=== PATIENT | male | born 1940 | race Caucasian/White ===

== ENCOUNTER 2018-12-26 21:42 | Inpatient (IN) | payer MEDICARE ==
[~2018-12-26] VITALS: Ht 177.8 cm; Wt 71.1 kg
[2018-12-26 22:24] LABS: BASOPHILS ABSOLUTE AUTO 0.04 K/mm3 (0.00-0.23); BASOPHILS PERCENT AUTO 0 % (0-2); EOSINOPHILS ABSOLUTE AUTO 0.02 K/mm3 (0.00-0.68); EOSINOPHILS PERCENT AUTO 0 % (0-6); Hematocrit 44.5 % (37.0-53.0); Hemoglobin 14.5 g/dL (13.5-17.5); IMMATURE GRAN ABSOLUTE AUTO 0.06 K/mm3 (0.00-0.10); IMMATURE GRAN PERCENT AUTO 0 % (0-1); LYMPHOCYTES ABSOLUTE AUTO 0.55 K/mm3 (0.84-5.20); LYMPHOCYTES PERCENT AUTO 4 % (21-46); MONOCYTES ABSOLUTE AUTO 0.66 K/mm3 (0.16-1.47); MONOCYTES PERCENT AUTO 4 % (4-13); Mean Corpuscular HGB 32.3 pg (26.0-34.0); Mean Corpuscular HGB Conc 32.6 g/dL (31.5-36.5); Mean Corpuscular Volume 99 fL (80-100); NEUTROPHILS ABSOLUTE AUTO 13.81 K/mm3 (1.96-9.15); NEUTROPHILS PERCENT AUTO 91 % (41-73); Platelet Count 272 K/mm3 (150-400); RDW Coefficient Variation 12.5 % (11.7-14.2); RDW Standard Deviation 45.5 fL (35.1-46.3); Red Blood Cell Count 4.49 M/mm3 (4.30-5.90); White Blood Cell Count 15.14 K/mm3 (4.00-11.30)
[2018-12-26] MEDS ORDERED: ASPI81CH PO (22:40)
[2018-12-26] MEDS ORDERED: CALCITRATE200 MG PO (22:40)
[2018-12-26] MEDS ORDERED: ELIQUIS5 MG PO (22:40)
[2018-12-26 22:41] LABS: Albumin, Blood 3.2 g/dL (3.4-5.0); Albumin/Globulin Ratio 0.9 (0.8-1.8); Bun/Creatinine Ratio 18.9 (12.0-20.0); Calcium, Blood 8.6 mg/dL (8.5-10.1); Creatinine, Blood 1.59 mg/dL (0.60-1.20); Globulin, Blood 3.5 g/dL (2.2-4.0); Potassium, Blood 4.8 mmol/L (3.5-5.5); Total Protein, Blood 6.7 g/dL (6.4-8.2)
[2018-12-26] MEDS ORDERED: PRED5 PO (22:41)
[2018-12-26] MEDS ORDERED: CAND16 PO (22:41)
[2018-12-26] MEDS ORDERED: FURO40 PO (22:41)
[2018-12-26] MEDS ORDERED: METO25ER PO (22:41)
[2018-12-26] MEDS ORDERED: FURO20 PO (22:41)
[2018-12-26 22:42] LABS: Source, Urine Clean Catch
[2018-12-26] MEDS ORDERED: RISE35 PO (22:42)
[2018-12-26] MEDS ORDERED: Zantac150 MG PO (22:42)
[2018-12-26] MEDS ORDERED: PANT40 PO (22:42)
[2018-12-26] MEDS ORDERED: SIMV40 PO (22:43)
[2018-12-26] MEDS ORDERED: SPIR25 PO (22:43)
[2018-12-26] MEDS ORDERED: TIOT18 INH (22:43)
[2018-12-26 22:44] LABS: Blood, Urine 1+ (Neg); Glucose Qualitative, Urine Neg (Neg); Ketones, Urine 1+ (Neg); Leukocyte Esterase, Urine 1+ (Neg); Nitrite, Urine Neg (Neg); Protein, Urine 2+ (Neg); Urobilinogen, Urine 1+ (Normal)
[2018-12-26] MEDS ORDERED: LANS30EC PO (22:44)
[2018-12-26] MEDS ORDERED: NITR.4SL SL (22:44)
[2018-12-26 22:47] LABS: Influenza A Negative (NEGATIVE); Influenza B Negative (NEGATIVE)
[2018-12-26 22:56] LABS: Appearance, Urine Hazy (Clear); Bilirubin, Urine 1+ (Neg); Color, Urine Yellow (P-Yellow)
[2018-12-26 22:57] LABS: Amorphous Light (0-Heavy); Bacteria Few /hpf; Mucus Light (0-Heavy); Red Blood Cells, Urine 0-2 /hpf (0-2); Squamous Epithelial Cells Not Seen /hpf (Few)
[2018-12-26 23:18] LABS: Troponin I 0.298 ng/mL (0.000-0.040)
[2018-12-27 01:27] LABS: Troponin I 0.209 ng/mL (0.000-0.040)
[2018-12-27 04:58] LABS: Adenovirus Not Detected (NOT DETECT); Bordetella pertussis Not Detected (NOT DETECT); Chlamydophila pneumoniae Not Detected (NOT DETECT); Coronavirus 229E Not Detected (NOT DETECT); Coronavirus HKU1 Not Detected (NOT DETECT); Coronavirus NL63 Not Detected (NOT DETECT); Coronavirus OC43 Not Detected (NOT DETECT); Human Metapneumovirus Not Detected (NOT DETECT); Human Rhinovirus/Enterovirus Detected (NOT DETECT); Influenza A Not Detected (NOT DETECT); Influenza A/2009-H1 Not Detected (NOT DETECT); Influenza A/H1 Not Detected (NOT DETECT); Influenza A/H3 Not Detected (NOT DETECT); Influenza B Not Detected (NOT DETECT); Mycoplasma pneumoniae Not Detected (NOT DETECT); Parainfluenza Virus 1 Not Detected (NOT DETECT); Parainfluenza Virus 2 Not Detected (NOT DETECT); Parainfluenza Virus 3 Not Detected (NOT DETECT); Parainfluenza Virus 4 Not Detected (NOT DETECT); Respiratory Syncytial Virus Not Detected (NOT DETECT)
--- NOTE | 2018-12-27 07:10 | NUR ---
SHIFT SUMMARY PATIENT ADMITED EARLIER THIS SHIFT FROM THE ER. PATIENT TRANSFERED FROM THE RNEY TO THE BED VIA SLIDER SHEET. PATIENT VERY SLEEPY UPON ADMIT. PATIENT WOULD EASILY AWAKEN TO VERBAL STIMULI BUT WOULD FALL ASLEEP WHILE RESPONDING TO QUESTIONS. PATIENT APPEARED TO SLEEP WELL THROUGHOUT THE REST OF THE NIGHT. PATIENT MUCH MORE ALERT THIS MORNING AND WAS ABLE TO STAND AT THE BEDSIDE TO USE THE URINAL WITH ONE ASSIST. PATIENT APPEARED ALERT AND ORIENTED THIS MORNING. FLUIDS AND ABX RUNNING PER ORDERS. REPORT GIVEN TO ONCOMING RN.
--- NOTE | 2018-12-27 08:21 | NUR ---
Echocardiogram completed.
[2018-12-27 08:53] LABS: Hematocrit 47.1 % (37.0-53.0); Mean Corpuscular HGB 32.2 pg (26.0-34.0); Mean Corpuscular HGB Conc 31.8 g/dL (31.5-36.5); Mean Corpuscular Volume 101 fL (80-100); Mean Platelet Volume 10.3 fL (9.1-12.4); Platelet Count 212 K/mm3 (150-400); RDW Coefficient Variation 12.5 % (11.7-14.2); Red Blood Cell Count 4.66 M/mm3 (4.30-5.90); White Blood Cell Count 13.95 K/mm3 (4.00-11.30)
[2018-12-27 09:12] LABS: Albumin, Blood 2.9 g/dL (3.4-5.0); Albumin/Globulin Ratio 0.8 (0.8-1.8); Bilirubin, Total 0.9 mg/dL (0.1-1.0); Bun/Creatinine Ratio 20.7 (12.0-20.0); Calcium, Blood 8.3 mg/dL (8.5-10.1); Creatinine, Blood 1.4 mg/dL (0.60-1.20); Globulin, Blood 3.8 g/dL (2.2-4.0); Total Protein, Blood 6.7 g/dL (6.4-8.2)
[2018-12-27 09:16] LABS: Troponin I 0.094 ng/mL (0.000-0.040)
--- NOTE | 2018-12-27 10:09 | NUR ---
NURSING PCU DAYSHIFT: Assumed care of pt at approx 0700. A/O, very pleasant, cooperative w/care. Skin is fragile w/scattered bruising noted to UE's, no breakdown noted. C/O 8/10 general pain including ACW discomfort which increases w/coughing and deep inspiration. Ambulates independently and w/o difficulty, mild general weakness noted, c/o numbness in b/l hands. Tele in place, afib w/BBB, no c/o cardiac related CP/pressure, HR 90's, trace BLE edema. L/S w/wheezes and crackles t/o, dyspnea w/minimal exertion, O2 sat upper 90's on RA, frequent cough producing large amts of thick reed/bloody sputum. Abd SNT, BT+, intermittent nausea, voiding w/o difficulty. PIV x1, s/l w/abx as ordered. No s/s of acute distress at this time. Tylenol administered for general discomfort, sputum specimen sent to lab, jello and juice provided for breakfast per pt request. Seen by PMD, new d/o received. Pt denies any current needs or questions regarding plan of care. Call light in reach and pt is able to use w/o difficulty. Cont to monitor for changes.
--- NOTE | 2018-12-27 18:46 | NUR ---
NURSING PCU DAYSHIFT SUMMARY: No significant changes noted t/o the shift. Pt became hypotensive w/SBP 80's and MAP <65, repositioned supine, improved t/o the afternoon. ECHO completed, results reviewed and discussed w/PMD, new d/o received, cardiology consult called to answering service. Spoke w/pt's daughter out of state, update provided, questions answered. Pt currently resting in bed comfortably. Denies any current needs or questions regarding plan of care, call light in reach, cont to monitor until rpt is given to NOC RN.
[2018-12-28 04:20] LABS: BASOPHILS ABSOLUTE AUTO 0.03 K/mm3 (0.00-0.23); BASOPHILS PERCENT AUTO 0 % (0-2); EOSINOPHILS ABSOLUTE AUTO 0.06 K/mm3 (0.00-0.68); EOSINOPHILS PERCENT AUTO 1 % (0-6); Hematocrit 39.9 % (37.0-53.0); Hemoglobin 12.8 g/dL (13.5-17.5); IMMATURE GRAN ABSOLUTE AUTO 0.07 K/mm3 (0.00-0.10); IMMATURE GRAN PERCENT AUTO 1 % (0-1); LYMPHOCYTES ABSOLUTE AUTO 0.81 K/mm3 (0.84-5.20); LYMPHOCYTES PERCENT AUTO 7 % (21-46); MONOCYTES ABSOLUTE AUTO 0.56 K/mm3 (0.16-1.47); MONOCYTES PERCENT AUTO 5 % (4-13); Mean Corpuscular HGB 32.2 pg (26.0-34.0); Mean Corpuscular HGB Conc 32.1 g/dL (31.5-36.5); Mean Corpuscular Volume 100 fL (80-100); Mean Platelet Volume 10.2 fL (9.1-12.4); NEUTROPHILS ABSOLUTE AUTO 9.96 K/mm3 (1.96-9.15); NEUTROPHILS PERCENT AUTO 87 % (41-73); Platelet Count 236 K/mm3 (150-400); RDW Coefficient Variation 12.6 % (11.7-14.2); RDW Standard Deviation 46.7 fL (35.1-46.3); Red Blood Cell Count 3.98 M/mm3 (4.30-5.90); White Blood Cell Count 11.49 K/mm3 (4.00-11.30)
[2018-12-28 04:38] LABS: Bun/Creatinine Ratio 19.7 (12.0-20.0); Creatinine, Blood 1.37 mg/dL (0.60-1.20); Potassium, Blood 4.9 mmol/L (3.5-5.5)
--- NOTE | 2018-12-28 07:37 | NUR ---
SHIFT SUMMARY PATIENT PLEASENT AND COOPERATIVE THROUGHOUT THE NIGHT. PATIENT APPEARED TO NAP ON AND OFF THROUGHOUT THE NIGHT. PATIENT HAS A HARSH COUGH THAT IS PRODUCING LOTS OF SPUTUM. PATIENT REPORTS SPUTUM IS MORE CLEAR THIS MORNING THAN IT WAS LAST NIGHT. COUGH MEDICATION OBTANED AND PROVIDED TO PATIENT FOR COUGH RELEIF. VITAL SIGNS CHARTED. REPORT GIVEN TO ONCOMING RN.
--- NOTE | 2018-12-28 17:23 | NUR ---
NO ACUTE CHANGES NOTED THIS SHIFT, NO C/O OF PAIN OR OTHER DISCOMFORT. CXR TO BE DONE IN THE AM. WILL CONTINUE TO MONITOR AND REPORT TO ONCOMING RN.
[2018-12-29 03:53] LABS: BASOPHILS ABSOLUTE AUTO 0.02 K/mm3 (0.00-0.23); BASOPHILS PERCENT AUTO 0 % (0-2); EOSINOPHILS ABSOLUTE AUTO 0.16 K/mm3 (0.00-0.68); EOSINOPHILS PERCENT AUTO 2 % (0-6); Hematocrit 39.1 % (37.0-53.0); Hemoglobin 12.7 g/dL (13.5-17.5); IMMATURE GRAN ABSOLUTE AUTO 0.05 K/mm3 (0.00-0.10); IMMATURE GRAN PERCENT AUTO 1 % (0-1); LYMPHOCYTES ABSOLUTE AUTO 0.86 K/mm3 (0.84-5.20); LYMPHOCYTES PERCENT AUTO 9 % (21-46); MONOCYTES ABSOLUTE AUTO 0.47 K/mm3 (0.16-1.47); MONOCYTES PERCENT AUTO 5 % (4-13); Mean Corpuscular HGB 31.9 pg (26.0-34.0); Mean Corpuscular HGB Conc 32.5 g/dL (31.5-36.5); Mean Corpuscular Volume 98 fL (80-100); Mean Platelet Volume 9.9 fL (9.1-12.4); NEUTROPHILS ABSOLUTE AUTO 7.74 K/mm3 (1.96-9.15); NEUTROPHILS PERCENT AUTO 83 % (41-73); Platelet Count 289 K/mm3 (150-400); RDW Coefficient Variation 12.2 % (11.7-14.2); RDW Standard Deviation 44.3 fL (35.1-46.3); Red Blood Cell Count 3.98 M/mm3 (4.30-5.90)
[2018-12-29 04:23] LABS: Albumin, Blood 2.7 g/dL (3.4-5.0); Albumin/Globulin Ratio 0.8 (0.8-1.8); Bilirubin, Total 0.9 mg/dL (0.1-1.0); Bun/Creatinine Ratio 22.2 (12.0-20.0); Calcium, Blood 7.9 mg/dL (8.5-10.1); Creatinine, Blood 1.44 mg/dL (0.60-1.20); Globulin, Blood 3.3 g/dL (2.2-4.0); Potassium, Blood 3.9 mmol/L (3.5-5.5)
--- NOTE | 2018-12-29 05:59 | NUR ---
SHIFT SUMMARY PATIENT ALERT AND ORIENTED X3 T/O SHIFT. HE SLEPT ALL NIGHT, WAKING EASILY FOR VITALS AND ASSESSMENTS. PT DENIED ANY UNMET NEEDS, HIS VITALS WERE STABLE AND NO ACUTE CHANGES WERE OBSERVED TO LOC OR MENTATION. PT COMMUNICATED EFFECTIVELY WITH STAFF DURING THE NIGHT. HE WAS UP WITH SBA, THOUGH USED URINAL AT BEDSIDE WITHOUT ISSUE. PT WILL CONTINUE TO BE MONITORED UNTIL HANDOFF TO DAYSHIFT RN.
--- NOTE | 2018-12-29 08:30 | NUR ---
Assumed Care: Assumed care of pt at approx 0700. VSS. In no apparent sign of distress. Pt is A&Ox4. Calls appropriately and repositions self. Denies any pain at this time except for a mild sore throat and some feeling of chest congestion. See shift assessment for detailed assessment. Currently resting in bed with call light within reach. Denies any further questions, complaints or requests at this time. Possible status change to medical floor today. Will continue to monitor.
--- NOTE | 2018-12-29 18:45 | NUR ---
Shift Summary No acute changes since initial shift assessment. VSS. In no apparent sign of distress. Pt is A&Ox4. Calls appropriately. Repositions self. Denies any pain t/o the day. Discussed with Dr. Morton possibly status changing pt today, but no further orders received. Pt has overall had a very uneventful day. Denies any acute complaints or events t/o the shift. Currently resting in bed with call light within reach. Denies any further questions, complaints or requests at this time. Will continue to montior until report is given to conor DALE.
[2018-12-30 04:43] LABS: BASOPHILS ABSOLUTE AUTO 0.03 K/mm3 (0.00-0.23); BASOPHILS PERCENT AUTO 0 % (0-2); EOSINOPHILS ABSOLUTE AUTO 0.27 K/mm3 (0.00-0.68); EOSINOPHILS PERCENT AUTO 3 % (0-6); Hematocrit 41.4 % (37.0-53.0); Hemoglobin 13.6 g/dL (13.5-17.5); IMMATURE GRAN ABSOLUTE AUTO 0.06 K/mm3 (0.00-0.10); IMMATURE GRAN PERCENT AUTO 1 % (0-1); LYMPHOCYTES ABSOLUTE AUTO 1.08 K/mm3 (0.84-5.20); LYMPHOCYTES PERCENT AUTO 11 % (21-46); MONOCYTES ABSOLUTE AUTO 0.63 K/mm3 (0.16-1.47); MONOCYTES PERCENT AUTO 7 % (4-13); Mean Corpuscular HGB 31.9 pg (26.0-34.0); Mean Corpuscular HGB Conc 32.9 g/dL (31.5-36.5); Mean Corpuscular Volume 97 fL (80-100); Mean Platelet Volume 9.8 fL (9.1-12.4); NEUTROPHILS ABSOLUTE AUTO 7.41 K/mm3 (1.96-9.15); NEUTROPHILS PERCENT AUTO 78 % (41-73); Platelet Count 335 K/mm3 (150-400); RDW Coefficient Variation 12.1 % (11.7-14.2); RDW Standard Deviation 43.7 fL (35.1-46.3); Red Blood Cell Count 4.26 M/mm3 (4.30-5.90); White Blood Cell Count 9.48 K/mm3 (4.00-11.30)
[2018-12-30 04:55] LABS: Albumin, Blood 2.8 g/dL (3.4-5.0); Anion Gap 8 mmol/L (6-16); Blood Urea Nitrogen 38 mg/dL (8-24); Bun/Creatinine Ratio 26.2 (12.0-20.0); CO2, Blood 29 mmol/L (21-32); Calcium, Blood 8.5 mg/dL (8.5-10.1); Chloride, Blood 103 mmol/L (98-108); Creatinine, Blood 1.45 mg/dL (0.60-1.20); Glomerular Filtration Rate 50 (60-); Glucose, Blood 84 mg/dL (70-99); Phosphorus, Blood 4.3 mg/dL (2.5-4.9); Potassium, Blood 3.9 mmol/L (3.5-5.5); Sodium, Blood 140 mmol/L (136-145)
--- NOTE | 2018-12-30 06:40 | NUR ---
SHIFT SUMMARY NO ACUTE CHANGES TO PATIENT'S LOC OR MENTATION T/O SHIFT. HE SLEPT WELL T/O THE NIGHT WAKING EASILY FOR VITALS AND ASSESSMENTS. PT DENIED ANY UNMET NEEDS. HE WAS ABLE TO COMMUNICATE WITH STAFF EFFECTIVELY. PT WAS PLEASANT AND COOPERATIVE DURING THE NIGHT AND REMAINED ALERT AND ORIENTED X 3. HE WILL CONTINUE TO BE MONITORED UNTIL HANDOFF TO DAYSHIFT RN.
--- NOTE | 2018-12-30 19:57 | NUR ---
Shift Summary No acute changes since initial shift assessment. VSS. In no apparent sign of distress. Pt is A&Ox4. Calls appropriately. Pt went on 3 walks t/o the hospital today approx 300ft each walk and tolerated well. Pt had a very uneventful day. Plan to DC tomorrow. Currently resting in bed with call light within reach. Denies any further questions, complaints or requests at this time. Report given to conor DALE.
[2018-12-31 04:17] LABS: BASOPHILS ABSOLUTE AUTO 0.05 K/mm3 (0.00-0.23); BASOPHILS PERCENT AUTO 1 % (0-2); EOSINOPHILS ABSOLUTE AUTO 0.24 K/mm3 (0.00-0.68); EOSINOPHILS PERCENT AUTO 2 % (0-6); Hematocrit 43.4 % (37.0-53.0); Hemoglobin 14.3 g/dL (13.5-17.5); IMMATURE GRAN ABSOLUTE AUTO 0.07 K/mm3 (0.00-0.10); IMMATURE GRAN PERCENT AUTO 1 % (0-1); LYMPHOCYTES ABSOLUTE AUTO 1.08 K/mm3 (0.84-5.20); LYMPHOCYTES PERCENT AUTO 10 % (21-46); MONOCYTES ABSOLUTE AUTO 0.78 K/mm3 (0.16-1.47); MONOCYTES PERCENT AUTO 7 % (4-13); Mean Corpuscular HGB 31.2 pg (26.0-34.0); Mean Corpuscular HGB Conc 32.9 g/dL (31.5-36.5); Mean Corpuscular Volume 95 fL (80-100); Mean Platelet Volume 10.3 fL (9.1-12.4); NEUTROPHILS ABSOLUTE AUTO 8.32 K/mm3 (1.96-9.15); NEUTROPHILS PERCENT AUTO 79 % (41-73); Platelet Count 333 K/mm3 (150-400); RDW Coefficient Variation 11.9 % (11.7-14.2); RDW Standard Deviation 41.5 fL (35.1-46.3); Red Blood Cell Count 4.58 M/mm3 (4.30-5.90); White Blood Cell Count 10.54 K/mm3 (4.00-11.30)
[2018-12-31 04:49] LABS: Albumin, Blood 2.8 g/dL (3.4-5.0); Anion Gap 9 mmol/L (6-16); Blood Urea Nitrogen 35 mg/dL (8-24); Bun/Creatinine Ratio 25.5 (12.0-20.0); CO2, Blood 30 mmol/L (21-32); Calcium, Blood 8.6 mg/dL (8.5-10.1); Chloride, Blood 102 mmol/L (98-108); Creatinine, Blood 1.37 mg/dL (0.60-1.20); Glomerular Filtration Rate 53 (60-); Glucose, Blood 83 mg/dL (70-99); Phosphorus, Blood 4.4 mg/dL (2.5-4.9); Potassium, Blood 3.7 mmol/L (3.5-5.5); Sodium, Blood 141 mmol/L (136-145)
--- NOTE | 2018-12-31 05:43 | NUR ---
SHIFT SUMMARY- PT HAS REMAINED AOX4 THROUGHOUT SHIFT. VSS. PLEASANT AND COOPERATIVE WITH CARE. O2 SATS HAVE REMAINED >90% ON RA THROUGHOUT THE NIGHT AND SLEPT THROUGHOUT MOST OF THE SHIFT. PT HAS DENIED FEELING OVERLY DISPNEIC ON EXERTION. PT MEDICATED ONCE FOR PAIN IN LUNGS FROM COUGHING, REPORTS PAIN DID NOT MUCH DECREASE WITH ORDERED TYLENOL, BUT THAT THE "PEARLS" HELP. PT CONTINUES TO BE INDEPENDENT IN ROOM AND USING URINAL AT BEDSIDE. NO OTHER CHANGES FROM INITIAL ASSESSMENT. WILL CONTINUE TO MONITOR AND REPORT TO ONCOMING RN. BED IN LOW POSITION, CALL LIGHT IN REACH.
--- NOTE | 2018-12-31 10:40 | NUR ---
The pt is cheerful, pleasantly conversant, alert and oriented. He states he is having soreness in his diaphragm area from frquent coughing. States he has gone through 4 boxes of kleenex from coughing up white pink-tinged sputum and blowing his nose. Tylenol given for relief. Lung sounds are clear, and he appears to have no difficulty breathing while at rest, during conversation, and while eating breakfast. He states that he is hoping to go home today.
[2018-12-31] MEDS ORDERED: TORSE20 PO (12:37)
[2018-12-31] MEDS ORDERED: BENZ100A PO (12:39)
[2018-12-31] MEDS ORDERED: CEFP200 PO (12:41)
[2018-12-31] MEDS ORDERED: BISA10S PR (12:43)
[2018-12-31] MEDS ORDERED: Acidophilus La100 GM PO (12:54)
[2018-12-31] MEDS ORDERED: GUAI600T33 PO (12:54)
[2018-12-31] MEDS ORDERED: ONDA4ODT MM (12:55)
[2018-12-31] MEDS ORDERED: AZIT500 PO (12:56)
--- NOTE | 2018-12-31 13:36 | NUR ---
Discharge instructions were reviewed with the patient and his daughter. Follow up appointments for follow up were initiated with cardiology (they will call the pt with a follow up appointment) and also with [facility] in [place] for the pt to establish with a PCP there. The pt was then taken out by Escort services to a private vehicle driven by his daughter.
== END 2018-12-31 13:36 | disposition home or self-care (01) | DRG 871 ==
LOC: ER 21:42 → PCU 21:43
PROVIDERS: Emergency Medicine; Family Medicine; Internal Medicine; ADMIT Internal Medicine
DX: A41.9 Sepsis, unspecified organism (principal); J18.9 Pneumonia, unspecified organism; I42.9 Cardiomyopathy, unspecified; I48.1 Persistent atrial fibrillation; I25.10 Atherosclerotic heart disease of native coronary artery without angina pectoris; E78.5 Hyperlipidemia, unspecified; K21.9 Gastro-esophageal reflux disease without esophagitis; I27.20 Pulmonary hypertension, unspecified; I08.2 Rheumatic disorders of both aortic and tricuspid valves; I12.9 Hypertensive chronic kidney disease with stage 1 through stage 4 chronic kidney disease, or unspecified chronic kidney disease; N18.3 Chronic kidney disease, stage 3 (moderate); I25.2 Old myocardial infarction; Z95.5 Presence of coronary angioplasty implant and graft; Z88.8 Allergy status to other drugs, medicaments and biological substances; Z79.01 Long term (current) use of anticoagulants; Z79.82 Long term (current) use of aspirin; Z79.899 Other long term (current) drug therapy; Z79.52 Long term (current) use of systemic steroids; Z87.891 Personal history of nicotine dependence
CPT/HCPCS: 36415; 71046; 80048; 80053; 80069; 81001; 82550; 83605; 83880; 84145; 84484; 85025; 85027; 87040; 87070; 87077; 87086; 87185; 87205; 87486; 87581; 87633; 87798; 87804; 93005; 93010; 93306; 94640; 94760; 96361; 96374; 96375; 99285-25; J0456; J0696; J1650; J1956; J2405; J3010; J7030; J7050